=== PATIENT | male | born 1955 | race Caucasian/White ===

== ENCOUNTER 2021-05-30 19:15 | Inpatient (IN) ==
[2021-05-30] MEDS ORDERED: D5 1/2 NS 1,000 ML 1,000 ML IV ONE (21:32)
[2021-05-30] MEDS ORDERED: PROTONIX INJ 40 MG VIAL ONE (21:32)
[2021-05-30 21:41] VITALS: BMI 35.9
[2021-05-30] MEDS ORDERED: NORCO 5/325 MG TAB ONE (21:42)
[2021-05-30] MEDS: D5 1/2 NS 1,000 ML 1,000 ML IV SCH (21:53)
[2021-05-30] MEDS: PROTONIX INJ 40 MG VIAL IVP SCH (21:53)
[2021-05-31 00:47] LABS: HEMOGLOBIN 6.6 g/dL (13.5-18.0)
[2021-05-31 00:48] LABS: HEMATOCRIT 19.8 % (42.0-54.0)
[2021-05-31 01:09] LABS: CKMB % 3.2 % (<4); CREATINE KINASE MB 2.7 ng/mL (0-4.0)
[2021-05-31] MEDS ORDERED: NS 500 ML IV 500 ML IV ONE ×2 (03:10→03:30)
[2021-05-31] MEDS: D5 1/2 NS 1,000 ML 1,000 ML IV SCH ×4 (06:25→23:50)
[2021-05-31 06:42] LABS: BASOPHILS % (AUTO) 0.1 % (0.2-1.0); HEMATOCRIT 21.4 % (42.0-54.0); HEMOGLOBIN 7.3 g/dL (13.5-18.0); LYMPHOCYTES # (AUTO) 0.8 X10^3/uL (1.3-2.9); LYMPHOCYTES % (AUTO) 6.8 % (21.0-51.0); MEAN CORPUSCULAR HGB CONC 34.3 g/dL (33.0-35.0); MEAN CORPUSCULAR VOLUME 93.2 fL (80.0-100.0); MEAN PLATELET VOLUME 7.1 fL (7.4-11.0); MONOCYTES # (AUTO) 0.5 x10^3/uL (0.3-0.8); MONOCYTES % (AUTO) 4.3 % (0.0-13.0); NEUTROPHILS # (AUTO) 10.3 x10^3/uL (2.2-4.8); NEUTROPHILS % (AUTO) 88.8 % (42.0-75.0); RED BLOOD COUNT 2.29 X10^6/uL (4.7-6.0); RED CELL DISTRIBUTION WIDTH 16.7 % (11.6-16.5); WHITE BLOOD COUNT 11.6 X10^3/uL (3.6-10.0)
[2021-05-31 06:56] LABS: ALANINE AMINOTRANSFERASE 20 Units/L (12-78); ALBUMIN 2.5 g/dL (3.4-5.0); ALKALINE PHOSPHATASE 54 Units/L (46-116); ASPARTATE AMINO TRANSFERASE 24 Units/L (15-37); BLOOD UREA NITROGEN 26 mg/dL (7-18); CALCIUM 7.1 mg/dL (8.5-10.1); CARBON DIOXIDE 24.9 mmol/L (21-32); CHLORIDE 110 mmol/L (98-107); COR CA(FOR HYPOALB) 8.3 mg/dL (8.5-10.1); COR NA(FOR HYPERGLY) 142 mmol/L (136-145); CREATININE 0.92 mg/dL (0.70-1.30); SODIUM 142 mmol/L (136-145); TOTAL PROTEIN 4.8 g/dL (6.4-8.2); eGFR NON BLACK RACES > 60 (>60)
[2021-05-31] MEDS: PROTONIX INJ 40 MG VIAL IVP SCH (08:13)
[2021-05-31] MEDS ORDERED: NS 250 ML IV 250 ML IV PRN (10:39)
[2021-05-31] MEDS ORDERED: DIPRIVAN VIAL 20 ML ONE ×2 (12:33→12:45)
[2021-05-31] MEDS: NORCO 5/325 MG TAB PO PRN ×2 (15:05→19:52)
[2021-05-31 16:55] LABS: HEMATOCRIT 23.8 % (42.0-54.0); HEMOGLOBIN 8.2 g/dL (13.5-18.0)
[2021-06-01] MEDS: NORCO 5/325 MG TAB PO PRN ×2 (00:58→08:42)
[2021-06-01] MEDS: D5 1/2 NS 1,000 ML 1,000 ML IV SCH (06:03)
[2021-06-01 06:49] LABS: BASOPHILS % (AUTO) 0.3 % (0.2-1.0); EOSINOPHILS % (AUTO) 0.3 % (0.9-2.9); HEMATOCRIT 22.9 % (42.0-54.0); HEMOGLOBIN 7.9 g/dL (13.5-18.0); LYMPHOCYTES % (AUTO) 13.3 % (21.0-51.0); MEAN CORPUSCULAR HEMOGLOBIN 32.1 pg (27.0-34.0); MEAN CORPUSCULAR HGB CONC 34.3 g/dL (33.0-35.0); MEAN CORPUSCULAR VOLUME 93.7 fL (80.0-100.0); MEAN PLATELET VOLUME 7.5 fL (7.4-11.0); MONOCYTES # (AUTO) 0.4 x10^3/uL (0.3-0.8); MONOCYTES % (AUTO) 5.3 % (0.0-13.0); NEUTROPHILS # (AUTO) 5.9 x10^3/uL (2.2-4.8); NEUTROPHILS % (AUTO) 80.8 % (42.0-75.0); RED BLOOD COUNT 2.45 X10^6/uL (4.7-6.0); RED CELL DISTRIBUTION WIDTH 17.5 % (11.6-16.5); WHITE BLOOD COUNT 7.3 X10^3/uL (3.6-10.0)
[2021-06-01 07:01] LABS: ALANINE AMINOTRANSFERASE 21 Units/L (12-78); ALBUMIN 2.7 g/dL (3.4-5.0); ALKALINE PHOSPHATASE 55 Units/L (46-116); ASPARTATE AMINO TRANSFERASE 26 Units/L (15-37); BLOOD UREA NITROGEN 11 mg/dL (7-18); CALCIUM 7.6 mg/dL (8.5-10.1); CARBON DIOXIDE 26.2 mmol/L (21-32); CHLORIDE 111 mmol/L (98-107); COR CA(FOR HYPOALB) 8.6 mg/dL (8.5-10.1); COR NA(FOR HYPERGLY) 143 mmol/L (136-145); CREATININE 0.85 mg/dL (0.70-1.30); SODIUM 143 mmol/L (136-145); TOTAL PROTEIN 5.1 g/dL (6.4-8.2); eGFR NON BLACK RACES > 60 (>60)
[2021-06-01] MEDS: PROTONIX INJ 40 MG VIAL IVP SCH (08:42)
[2021-06-01 12:18] VITALS: BP 180/84
== END 2021-06-01 14:20 | disposition home or self-care (01) | DRG 378 ==
LOC: MED/SURG → OBSVTOIN 21:03
PROVIDERS: ADMIT Surgery; ATTEND Surgery